=== PATIENT | female | born 1935 | race Caucasian/White ===

== ENCOUNTER 2016-08-26 10:29 | Emergency (ER) | payer OTHER ==
[~2016-08-26] VITALS: Ht 154.9 cm; Wt 54.4 kg
[2016-08-26 11:46] LABS: BLOOD UREA NITROGEN 27 mg/dL (7-18)
[2016-08-26 11:51] LABS: IS PT STATUS REG ER OR PRE ER? YES
[2016-08-26] MEDS ORDERED: LOVA40TA2 PO (13:14)
[2016-08-26] MEDS ORDERED: FURO20TA3 PO (13:14)
[2016-08-26] MEDS ORDERED: POTA25TA4 PO (13:14)
[2016-08-26 14:26] VITALS: BP 154/71
== END 2016-08-26 15:09 | disposition home or self-care (01) ==
LOC: ED 15:00
DX: S81.801A Unspecified open wound, right lower leg, initial encounter (principal); S30.0XXA Contusion of lower back and pelvis, initial encounter; E78.00 Pure hypercholesterolemia, unspecified; I10 Essential (primary) hypertension; W19.XXXA Unspecified fall, initial encounter; Y93.89 Activity, other specified; Y99.8 Other external cause status; Y92.009 Unspecified place in unspecified non-institutional (private) residence as the place of occurrence of the external cause
CPT/HCPCS: 36415; 71020; 72220; 80048; 82040; 84484; 85025; 93005; 99285

== ENCOUNTER 2019-04-01 11:17 | Observation (INO) | payer MEDICARE, OTHER ==
[~2019-04-01] VITALS: Ht 152.4 cm; Wt 53.0 kg
[~2019-04-01 11:17] MED LIST: FURO20TA3 PO; LOVA40TA2 PO; POTA25TA4 PO
[2019-04-01] MEDS ORDERED: SODIUM CHLORIDE 0.9% 1,000 ML IV ONE (11:35)
--- NOTE | 2019-04-01 11:40 | NUR ---
FOOD POISONING SATURDAY C/O "UPCHUCKS AND SHAKES FOR A COUPLE OF DAYS", "NOW I HAVE THE RUNS", "EATING MAKES ME SICK TO MY STOMACH. HAS BEEN EATING CRACKERS & DRINKING WATER. TOOK PEPTO-BISMOL (LAST DOSE YESTERDAY). DENIES ESPARZA. C/O INTERMITTENT MINOR GENERALIZED ABD PAIN. LAST BM: SEVERAL THIS MORNING "THE RUNS". SPOUSE IN ROOM.
[2019-04-01 11:53] LABS: BASOPHILS # (AUTO) 0.02 x10^3/uL (0-0.1); BASOPHILS % (AUTO) 0 % (0-1); EOSINOPHILS # (AUTO) 0.03 x10^3/uL (0-0.4); EOSINOPHILS % (AUTO) 1 % (1-7); LYMPHOCYTES # (AUTO) 1.64 x10^3/uL (1-3.4); LYMPHOCYTES % (AUTO) 26 % (22-44); MD NO; MEAN CORPUSCULAR HEMOGLOBIN 32.5 pg (27.0-34.8); MEAN CORPUSCULAR HGB CONC 33.1 g/dL (32.4-35.8); MEAN CORPUSCULAR VOLUME 98.4 fL (80-100); MEAN PLATELET VOLUME 7.8 fL (7.4-10.4); MONOCYTES # (AUTO) 0.64 x10^3/uL (0.2-0.8); MONOCYTES % (AUTO) 10 % (2-9); NEUTROPHILS # (AUTO) 4.05 x10^3/uL (1.8-6.8); NEUTROPHILS % (AUTO) 63 % (42-75); PLATELET COUNT 374 x10^3/uL (130-400); RED BLOOD COUNT 4.56 x10^6/uL (3.82-5.3); RED CELL DISTRIBUTION WIDTH 13.4 % (9.6-15.2)
[2019-04-01] MEDS ORDERED: ONDANSETRON 2MG/ML, 2ML ONE (11:55)
[2019-04-01] MEDS ORDERED: SODIUM CHLORIDE FLUSH 10ML SYR IVF ONE (12:00)
[2019-04-01] MEDS ORDERED: SODIUM CHLORIDE 0.9% 1,000ML IVBOLUS ONE (12:00)
[2019-04-01] MEDS ORDERED: ONDANSETRON 2MG/ML, 2ML IVPush ONE (12:00)
[2019-04-01 12:06] LABS: ALANINE AMINOTRANSFERASE 21 U/L (12-78); ALBUMIN 3.3 g/dL (3.4-5.0); ANION GAP 10 mmol/L (5-15); CHLORIDE 102 mmol/L (98-107); CREATININE 1.97 mg/dL (0.55-1.02)
[2019-04-01 12:08] LABS: ALKALINE PHOSPHATASE 71 U/L (45-117); BILIRUBIN,TOTAL 0.4 mg/dL (0.2-1.0); TOTAL PROTEIN 7.1 g/dL (6.4-8.2)
--- NOTE | 2019-04-01 12:09 | NUR ---
PIV INITIATED, NS 500ML BOLUS STARTED, ZOFRAN GIVEN PER EMAR. PT AWARE OF NEED FOR URINE & STOOL SPECIMEN; REPORTS NO URGE TO VOID, CURRENTLY. SIDE RAIL UP X1, CALL LIGHT W/IN REACH, SPOUSE IN ROOM.
--- NOTE | 2019-04-01 12:26 | NUR ---
NS 500ML BOLUS COMPLETED.
--- NOTE | 2019-04-01 12:43 | NUR ---
AMBULATORY TO & FROM [facility] W/OUT INCIDENT; GAIT STEADY. VOIDED SPECIMEN PROVIDED.
--- NOTE | 2019-04-01 12:45 | NUR ---
NS HUNG, INFUSING AT 250 ML/HR. IV SITE PATENT.
[2019-04-01] MEDS: SODIUM CHLORIDE 0.9% 1,000 ML IV SCH ×2 (13:24→20:41)
[2019-04-01] MEDS ORDERED: ONDANSETRON ODT 4 MG PO PRN (13:30)
[2019-04-01] MEDS ORDERED: PROMETHAZINE 25 MG/ML, 1ML IM PRN (13:30)
[2019-04-01] MEDS ORDERED: ONDANSETRON 2MG/ML, 2ML IVPush PRN (13:30)
[2019-04-01] MEDS ORDERED: BACLOFEN 10 MG TABLET PO PRN (13:30)
[2019-04-01] MEDS ORDERED: ACETAMINOPHEN 325 MG TABLET PO PRN (13:30)
[2019-04-01] MEDS ORDERED: hydrALAzine 20 MG/ML, 1ML IVPush PRN (13:30)
[2019-04-01 13:42] LABS: MICROSCOPIC INDICATED
[2019-04-01 13:55] LABS: CULTURE INDICATED? NO
--- NOTE | 2019-04-01 14:46 | NUR ---
NS IV RATE DECREASED PER EMAR ORDER. INFUSING AT 100 ML/HR VIA DIAL-AFLOW; SITE PATENT. PT RESTING QUIETLY ON BED, WATCHING TV; AWARE OF PENDING ADMISSION.
--- NOTE | 2019-04-01 15:37 | NUR ---
APPLE JUICE 4OZ PROVIDED. PT RESTING QUIETLY, WATCHING TV. NS INFUSING AT 100ML/HR; IV SITE PATENT.
--- NOTE | 2019-04-01 17:31 | NUR ---
Break RN: Meal tray ordered
--- NOTE | 2019-04-01 17:32 | NUR ---
PT REPORT TO BREAK RN: LAUREN. PT CARE TRANSFERRED.
--- NOTE | 2019-04-01 18:12 | NUR ---
PT REPORT FROM JUMA AGUILAR. PT CARE TO BE ASSUMED.
--- NOTE | 2019-04-01 18:15 | NUR ---
PT SITTING ON BEDSIDE EATING DINNER. NS INFUSING - 600ML INFUSED SO FAR.
--- NOTE | 2019-04-01 18:23 | NUR ---
PT REPORT TO JUMA ROSE FOR ROOM 364
[2019-04-01 20:19] VITALS: BP 113/67
[2019-04-01] MEDS: LOVASTATIN 40 MG TABLET PO SCH (20:41)
[2019-04-01] MEDS: HEPARIN 5,000 UNITS/ML, 1ML SQ SCH (20:41)
[2019-04-02 02:22] VITALS: BP 109/59
[2019-04-02 06:05] LABS: ANION GAP 6 mmol/L (5-15); CALCIUM 8.2 mg/dL (8.5-10.1); CHLORIDE 114 mmol/L (98-107)
[2019-04-02 06:12] LABS: CREATININE 1.47 mg/dL (0.55-1.02)
[2019-04-02 06:15] LABS: BASOPHILS # (AUTO) 0.03 x10^3/uL (0-0.1); BASOPHILS % (AUTO) 1 % (0-1); EOSINOPHILS # (AUTO) 0.13 x10^3/uL (0-0.4); EOSINOPHILS % (AUTO) 3 % (1-7); LYMPHOCYTES # (AUTO) 2.28 x10^3/uL (1-3.4); LYMPHOCYTES % (AUTO) 48 % (22-44); MD NO; MEAN CORPUSCULAR HEMOGLOBIN 33.1 pg (27.0-34.8); MEAN CORPUSCULAR HGB CONC 33.1 g/dL (32.4-35.8); MEAN CORPUSCULAR VOLUME 100.1 fL (80-100); MEAN PLATELET VOLUME 8.5 fL (7.4-10.4); MONOCYTES # (AUTO) 0.67 x10^3/uL (0.2-0.8); MONOCYTES % (AUTO) 14 % (2-9); NEUTROPHILS # (AUTO) 1.63 x10^3/uL (1.8-6.8); NEUTROPHILS % (AUTO) 34 % (42-75); PLATELET COUNT 328 x10^3/uL (130-400); RED BLOOD COUNT 3.67 x10^6/uL (3.82-5.3); RED CELL DISTRIBUTION WIDTH 13.3 % (9.6-15.2)
[2019-04-02] MEDS: SODIUM CHLORIDE 0.9% 1,000 ML IV SCH ×2 (06:26→16:41)
[2019-04-02] MEDS: HEPARIN 5,000 UNITS/ML, 1ML SQ SCH ×3 (06:27→21:02)
[2019-04-02 07:05] VITALS: BP 103/58
[2019-04-02 11:59] LABS: CLOSTRIDIUM DIFFICILE ANTIGEN NEGATIVE; CLOSTRIDIUM DIFFICILE TOXIN NEGATIVE (Negative)
[2019-04-02 13:44] VITALS: BP 121/61
[2019-04-02 19:10] VITALS: BP 122/70
[2019-04-02] MEDS: LOVASTATIN 40 MG TABLET PO SCH (21:02)
[2019-04-03 01:01] VITALS: BP 130/61
[2019-04-03] MEDS: SODIUM CHLORIDE 0.9% 1,000 ML IV SCH (02:58)
[2019-04-03] MEDS: HEPARIN 5,000 UNITS/ML, 1ML SQ SCH (06:00)
[2019-04-03 06:55] LABS: BASOPHILS # (AUTO) 0.05 x10^3/uL (0-0.1); BASOPHILS % (AUTO) 1 % (0-1); EOSINOPHILS % (AUTO) 4 % (1-7); LYMPHOCYTES # (AUTO) 2.39 x10^3/uL (1-3.4); LYMPHOCYTES % (AUTO) 41 % (22-44); MD NO; MEAN CORPUSCULAR HEMOGLOBIN 32.5 pg (27.0-34.8); MEAN CORPUSCULAR HGB CONC 33.2 g/dL (32.4-35.8); MEAN PLATELET VOLUME 8.6 fL (7.4-10.4); MONOCYTES # (AUTO) 0.69 x10^3/uL (0.2-0.8); MONOCYTES % (AUTO) 12 % (2-9); NEUTROPHILS % (AUTO) 43 % (42-75); PLATELET COUNT 286 x10^3/uL (130-400); RED BLOOD COUNT 3.73 x10^6/uL (3.82-5.3); RED CELL DISTRIBUTION WIDTH 13.4 % (9.6-15.2)
[2019-04-03 07:03] LABS: ANION GAP 6 mmol/L (5-15); CALCIUM 8.4 mg/dL (8.5-10.1); CHLORIDE 117 mmol/L (98-107)
[2019-04-03 07:34] LABS: CREATININE 1.13 mg/dL (0.55-1.02)
[2019-04-03 09:20] VITALS: BP 149/64
[2019-04-03 09:30] VITALS: BP 145/57
== END 2019-04-03 13:20 | disposition home or self-care (01) ==
LOC: ED 13:19 → INTOOBSV 13:24 → EDIP 13:24 → ED 13:47 → 3N 19:20 → DCLOUNGE 04-03 13:10
PROVIDERS: ADMIT Hospitalist; ATTEND Family Medicine
DX: A08.4 Viral intestinal infection, unspecified (principal); R11.2 Nausea with vomiting, unspecified; N17.0 Acute kidney failure with tubular necrosis; R19.7 Diarrhea, unspecified; N17.9 Acute kidney failure, unspecified; A05.9 Bacterial foodborne intoxication, unspecified; I12.9 Hypertensive chronic kidney disease with stage 1 through stage 4 chronic kidney disease, or unspecified chronic kidney disease; E78.5 Hyperlipidemia, unspecified; N18.9 Chronic kidney disease, unspecified; E86.0 Dehydration; Z90.81 Acquired absence of spleen; Z66 Do not resuscitate; Z79.899 Other long term (current) drug therapy
CPT/HCPCS: 36415; 80048; 80053; 81001; 82607; 83605; 83690; 84443; 85025; 87324; 89055; 96361; 96372; 96374; 99284; G0378; J1644; J2405; J7030; 99285

== ENCOUNTER 2020-10-27 19:07 | Emergency (ER) | payer MEDICARE ==
[~2020-10-27] VITALS: Ht 152.4 cm; Wt 52.2 kg
[2020-10-27 19:12] VITALS: BP 153/81
[2020-10-27] MEDS ORDERED: LIDOCAINE-MPF 1%, 5ML ONE (19:29)
[2020-10-27] MEDS ORDERED: DIPH,PERTUSS(ACELL),TET VAC/PF 0.5 ML IM-VACC ONE ×2 (20:00→20:08)
[2020-10-27] MEDS ORDERED: LIDOCAINE-MPF 1%, 5ML INFIL ONE (20:00)
[2020-10-27] MEDS ORDERED: ACETAMINOPHEN 325 MG TABLET PO ONE (20:00)
[2020-10-27] MEDS ORDERED: ACETAMINOPHEN 325 MG TABLET ONE (20:20)
== END 2020-10-27 21:28 | disposition home or self-care (01) ==
LOC: ED 19:37
DX: S81.812A Laceration without foreign body, left lower leg, initial encounter (principal); I10 Essential (primary) hypertension; E78.00 Pure hypercholesterolemia, unspecified; Z90.89 Acquired absence of other organs; W01.0XXA Fall on same level from slipping, tripping and stumbling without subsequent striking against object, initial encounter; Y93.89 Activity, other specified; Y92.009 Unspecified place in unspecified non-institutional (private) residence as the place of occurrence of the external cause; Y99.8 Other external cause status
CPT/HCPCS: 12034; 90471; 90715; 99284